=== PATIENT | male | born 1995 | race Caucasian/White ===

== ENCOUNTER 2017-01-27 10:14 | Emergency (ER) | payer SELFPAY ==
[~2017-01-27] VITALS: Ht 177.8 cm; Wt 79.4 kg
[2017-01-27 10:14] VITALS: BP_SYST 113
--- NOTE | 2017-01-27 10:14 | NUR ---
BROUGHT IN BY [facility], PLACED IN BED #4 AND TRIAGED. REPORT GIVEN TO MARCY
--- NOTE | 2017-01-27 10:25 | NUR ---
Pt bib EMS for L 3rd toe pain. Pt is homeless and admits to meth use. Pt has no acute distress noted. Pt has poor attention span and unwashed appearance. Will monitor.
--- NOTE | 2017-01-27 10:33 | NUR ---
ER at bedside examining patient.
--- NOTE | 2017-01-27 10:55 | NUR ---
Patient given written and verbal discharge instructions and verbalizes understanding. ER MD discussed with patient the results and treatment provided. Patient in stable condition. ID arm band removed. Patient educated on pain management and to follow up with PMD. Pain Scale [0]. Opportunity for questions provided and answered.
== END 2017-01-27 10:56 | disposition home or self-care (01) ==
LOC: SED 10:14
DX: M79.671 Pain in right foot (principal); M79.672 Pain in left foot; F15.10 Other stimulant abuse, uncomplicated
CPT/HCPCS: 99283